=== PATIENT | female | born 1940 | race Caucasian/White ===

== ENCOUNTER 2017-04-28 05:52 | Day surgery (SDC) | payer OTHER ==
[~2017-04-28] VITALS: Ht 157.5 cm; Wt 172.7 kg
[~2017-04-28 05:52] MED LIST: AMLODIPINE BESY10 MG PO; ASPIR 8181 M1 PO; DAILY MULTIPLE1 EACH PO; FUROSEMIDE20 MG PO; HUMALOG100 UNIT/2 SC; LANTUS 3 M100 UNITS1 SC; LISINOPRIL10 MG PO; METFORMIN HCL500 MG PO; PANTOPRAZOLE SO40 MG PO; PRAVASTATIN SOD20 MG PO
[2017-04-28 06:35] VITALS: BP 128/77
[2017-04-28 09:33] VITALS: BP 168/73
[2017-04-28 10:04] VITALS: BP 137/66
== END 2017-04-28 10:10 | disposition home or self-care (01) ==
LOC: SDC 05:52
PROVIDERS: Ophthalmology
DX: H35.372 Puckering of macula, left eye (principal); H35.342 Macular cyst, hole, or pseudohole, left eye; H43.822 Vitreomacular adhesion, left eye; I11.0 Hypertensive heart disease with heart failure; I50.32 Chronic diastolic (congestive) heart failure; E11.9 Type 2 diabetes mellitus without complications; K21.9 Gastro-esophageal reflux disease without esophagitis; E78.5 Hyperlipidemia, unspecified; Z79.4 Long term (current) use of insulin; Z79.82 Long term (current) use of aspirin; Z88.0 Allergy status to penicillin
CPT/HCPCS: 82948; J0690; J1100; J2795